=== PATIENT | male | born 1950 | race Caucasian/White ===

== ENCOUNTER 2021-06-26 12:01 | Day surgery (SDC) | payer MEDICARE, OTHER ==
[~2021-06-26] VITALS: Ht 172.7 cm; Wt 70.2 kg
[~2021-06-26 12:01] MED LIST: ASPI81EC PO; HYDR1TAB94 PO
--- NOTE | 2021-06-26 12:48 | NUR ---
06/26/21 1248 Cong Carvajal History, Chart, Medications and Allergies reviewed before start of procedure. Patient confirms NPO status and agrees with scheduled surgery. 3-LEAD EKG REVIEWED WITH PHYSICIAN PRIOR TO START OF PROCEDURE. MONITOR INTACT WITH CONTINUOUS PULSE OXIMETRY AND INTERMITTENT BP. PATIENT DETERMINED TO BE ASA APPROPRIATE FOR PROPOFOL SEDATION PRIOR TO START OF PROCEDURE BY DR. AMOR
--- NOTE | 2021-06-26 13:27 | NUR ---
PT AXOX4, ABLE TO REPOSITION SELF IN BED, TOLERATING PO FLUIDS. PT REQUESTING TO GO HOME.
--- NOTE | 2021-06-26 13:46 | NUR ---
Patient up to Ambulate independently. Gait steady. Discharge instructions reviewed with patient. Patient verbalizes understanding. Copy given to patient to take home. Patient States Post-Procedure ride home has been arranged. Discharged via wheelchair to private car for ride home. ALL BELONGINGS RETURNED TO PATIENT
== END 2021-06-26 22:41 | disposition home or self-care (01) ==
LOC: ORSCMMR 12:01 → ORD 13:00 → ORSCMMR 22:41
PROVIDERS: Surgery
PROC: 0DBN8ZX Excision of Sigmoid Colon, Via Natural or Artificial Opening Endoscopic, Diagnostic (ICD-10-PCS; principal; 2021-06-26 13:00)
DX: Z12.11 Encounter for screening for malignant neoplasm of colon (principal); Z80.0 Family history of malignant neoplasm of digestive organs; Z86.010 Personal history of colon polyps; D12.5 Benign neoplasm of sigmoid colon; I44.1 Atrioventricular block, second degree; Z95.0 Presence of cardiac pacemaker
CPT/HCPCS: 88305; J2704; J7120